=== PATIENT | male | born 1945 | race Caucasian/White ===

== ENCOUNTER 2020-01-29 18:01 | Emergency (ER) | payer MEDICARE, BC ==
--- NOTE | 2020-01-29 18:28 | EDM.PDOC ---
ED HPI GENERAL MEDICAL PROBLEM - General Chief Complaint: Abdominal Pain Stated Complaint: LEFT SIDE PAIN Time Seen by Provider: 01/29/20 18:10 Source of Information: Reports: Patient History Limitations: Reports: No Limitations - History of Present Illness INITIAL COMMENTS - FREE TEXT/NARRATIVE: Patient comes in with complaints of left lower abdominal discomfort. Patient states it started approximately 24 hours prior to arrival to emergency department. Patient states it is a sudden onset sharp shooting on the left side. He states that he does have a history of diverticulitis approximately 3 times in his entire life and he states that it does feel similar to that however present on the same characteristic spot of generalized abdominal pain. He denies any urinary concerns of frequency, hesitancy or burning. He does state that it does hurt to palpate on the left lower abdominal cavity. And also the left lower flank area is tender to touch. Denies any new sexual partners or changes in sexual behavior in the last 60 days. Patient also states that he has not had any COVID-19 symptoms denies any fever, shortness of breath, chest pain, or peripheral edema. Location: Reports: Abdomen Quality: Reports: Ache Improves with: Reports: None Worsens with: Reports: None Associated Symptoms: Reports: No Other Symptoms Left Middle Abdominal Pain Score (Numeric/FACES): 5 - Related Data Allergies Allergy/AdvReac Type Severity Reaction Status Date / Time meperidine [From Demerol] AdvReac Severe Vomiting Verified 01/29/20 19:23 midazolam [From Versed] AdvReac Severe Pain Verified 01/29/20 19:23 Home Meds: Home Meds Amoxicillin/Potassium Clav [Augmentin 500-125 Tablet] 2 each PO BID #19 tablet 01/29/20 [Rx] ED ROS GENERAL - Review of Systems Review Of Systems: See Below Constitutional: Reports: No Symptoms HEENT: Reports: No Symptoms Respiratory: Reports: No Symptoms Cardiovascular: Reports: No Symptoms Endocrine: Reports: No Symptoms : Reports: No Symptoms Musculoskeletal: Reports: No Symptoms Skin: Reports: No Symptoms Neurological: Reports: No Symptoms Psychiatric: Reports: No Symptoms Hematologic/Lymphatic: Reports: No Symptoms Immunologic: Reports: No Symptoms ED EXAM, GENERAL - Physical Exam Exam: See Below Exam Limited By: No Limitations General Appearance: Alert, WD/WN, No Apparent Distress Head: Atraumatic, Normocephalic Respiratory/Chest: No Respiratory Distress, Lungs Clear, Normal Breath Sounds, No Accessory Muscle Use, Chest Non-Tender Cardiovascular: Normal Peripheral Pulses, Regular Rate, Rhythm, No Edema, No Rub GI/Abdominal: Tender, Abnormal Bowel Sounds. No: Distended, Guarding, Rigid, Rebound Back Exam: Normal Inspection, Full Range of Motion Extremities: Normal Inspection, Normal Range of Motion, Non-Tender, No Pedal Edema, Normal Capillary Refill Neurological: Alert, Oriented, Normal Gait Psychiatric: Normal Affect, Normal Mood Skin Exam: Warm, Intact, Normal Color Course - Vital Signs Last Recorded V/S: Last Vital Signs Temp 37.4 C 01/29/20 18:05 Pulse 87 01/29/20 18:05 Resp 16 01/29/20 18:05 BP 144/80 H 01/29/20 18:05 Pulse Ox 96 01/29/20 18:05 - Orders/Labs/Meds Orders: Active Orders 24 hr Category Date Time Status Amoxicillin/Clavulanate K [Augmentin 500 MG\125 MG] Med 01/29/20 19:46 Once 2 tab PO ONETIME ONE Sodium Chloride 0.9% [Normal Saline] 1,000 ml Med 01/29/20 19:04 Active IV ONETIME Medication Orders Amoxicillin/Clavulanate Potassium (Augmentin 500 Mg\125 Mg) 2 tab PO ONETIME ONE Stop: 01/29/20 19:47 Sodium Chloride (Normal Saline) 1,000 mls @ 1,000 mls/hr IV ONETIME ONE Stop: 01/29/20 20:03 Labs: Laboratory Tests 01/29/20 01/29/20 01/29/20 Range/Units 18:22 18:22 19:04 WBC 11.1 H (4.0-10.0) x10^3/uL RBC 4.71 (4.5-6.0) x10^6/uL Hgb 14.6 (14.0-18.0) g/dL Hct 41.8 (40.0-52.0) % MCV 88.7 (78.0-93.0) fL MCH 31.0 (26.0-32.0) pg MCHC 34.9 (32.0-36.0) g/dL RDW Coeff of Jackelyn 13.5 (10.0-15.0) % Plt Count 196 (130-400) x10^3/uL Neut % (Auto) 73.3 (50.0-80.0) % Lymph % (Auto) 16.8 L (25.0-50.0) % [place] % (Auto) 7.7 (2.0-11.0) % Eos % (Auto) 1.8 (0.0-4.0) % Baso % (Auto) 0.4 (0.2-1.2) % Sodium 141 (136-145) mmol/L Potassium 4.0 (3.5-5.1) mmol/L Chloride 105 (98-107) mmol/L Carbon Dioxide 26 (21-32) mmol/L Anion Gap 14.0 (10-20) mmol/L BUN 23 H (7-18) mg/dL Creatinine 1.2 (0.70-1.30) mg/dL Est Cr Clr Drug Dosing TNP Estimated GFR (MDRD) 59 Glucose 84 (74-106) mg/dL Calcium 9.0 (8.5-10.1) mg/dL Corrected Calcium 9.08 (8.5-10.1) mg/dL Total Bilirubin 0.7 (0.2-1.0) mg/dL AST 19 (15-37) U/L ALT 28 (16-63) U/L Alkaline Phosphatase 72 (46-116) U/L Total Protein 7.5 (6.4-8.2) g/dL Albumin 3.9 (3.4-5.0) g/dL Globulin 3.6 Albumin/Globulin Ratio 1.08 Urine Color Yellow (YELLOW) Urine Appearance Clear (CLEAR) Urine pH 5.0 (5.0-8.0) Ur Specific [place] 1.020 Urine Protein Negative (NEGATIVE) mg/dL Urine Glucose (UA) Negative (NEGATIVE) mg/dL Urine Ketones Negative (NEGATIVE) mg/dL Urine Occult Blood Negative (NEGATIVE) Urine Nitrite Negative (NEGATIVE) Urine Bilirubin Negative (NEGATIVE) Urine Urobilinogen 0.2 (0.2) EU/dL Ur Leukocyte Esterase Negative (NEGATIVE) Meds: Medications Generic Name Dose Route Start Last Admin Trade Name Freq PRN Reason Stop Dose Admin Amoxicillin/Clavulanate Potassium 2 tab 01/29/20 19:46 Augmentin 500 Mg\125 Mg PO 01/29/20 19:47 ONETIME ONE Sodium Chloride 1,000 mls @ 1,000 mls/hr 01/29/20 19:04 Normal Saline IV 01/29/20 20:03 ONETIME ONE Discontinued Medications Generic Name Dose Route Start Last Admin Trade Name Morales PRN Reason Stop Dose Admin Iopamidol 100 ml 01/29/20 18:54 01/29/20 19:01 Isovue-300 (61%) IVPUSH 01/29/20 18:55 100 ml ONETIME ONE Administration Iopamidol 50 ml 01/29/20 18:54 01/29/20 19:01 Isovue-300 (61%) IVPUSH 01/29/20 18:55 50 ml ONETIME ONE Administration Departure - Departure Time of Disposition: 19:50 Disposition: Home, Self-Care 01 Condition: Good Clinical Impression: Diverticulitis - Discharge Information *PRESCRIPTION DRUG MONITORING PROGRAM REVIEWED*: Not Applicable *COPY OF PRESCRIPTION DRUG MONITORING REPORT IN PATIENT PATRICIA: Not Applicable Instructions: Diverticulitis, Probiotics, Amoxicillin; Clavulanic Acid tablets Forms: ED Department Discharge Additional Instructions: 1. rest 2. increase your water intake 3. Take all antibiotics as prescribed even if feeling better 4. Take a probiotic while on antibiotics to help promote healthy GI motility 5. Activity and diet as tolerated 6. Can use Ibuprofen and tylenol for any fever or discomfort 7. Follow up with your PCP or return if symptoms progress or worsen 8. Education provided to you regarding your illness, probiotics, antibiotic prescribed 9. Call with any questions or concerns Sepsis Event Note (ED) - Focused Exam Vital Signs: Vital Signs Temp Pulse Resp BP Pulse Ox 01/29/20 18:05 37.4 C 87 16 144/80 H 96 - My Orders Last 24 Hours: My Active Orders 01/29/20 19:04 Sodium Chloride 0.9% [Normal Saline] 1,000 ml IV ONETIME 01/29/20 19:46 Amoxicillin/Clavulanate K [Augmentin 500 MG\125 MG] 2 tab PO ONETIME ONE - Assessment/Plan Last 24 Hours: My Active Orders 01/29/20 19:04 Sodium Chloride 0.9% [Normal Saline] 1,000 ml IV ONETIME 01/29/20 19:46 Amoxicillin/Clavulanate K [Augmentin 500 MG\125 MG] 2 tab PO ONETIME ONE Assessment:: 1. abdominal pain Plan: 1. Labs completed in the ER. Results reviewed with the patient 2. CT scan completed in the ER. Results reviewed with the patient 3. IV initiated in the emergency department 4. IV fluids provided 5. UA/UC completed in ER 6. Augmentin given in the ER. Has been given this in the past for diverticulitis and it has worked well. Script sent with patient to be filled 7. Patient and nursing staff was updated regarding the plan of care 8. Patient and family are agreeable to the above plan of care 9. All questions and concerns were addressed with the patient and family prior to discharge
[2020-01-29 18:48] LABS: CHLORIDE,CL 105 mmol/L (98-107); SODIUM,NA 141 mmol/L (136-145)
[2020-01-29] MEDS ORDERED: Iopamidol 612 MG/ML 50 ML SDV IVPUSH ONE (18:54)
[2020-01-29] MEDS ORDERED: Iopamidol 612 MG/ML 100 ML Bottle IVPUSH ONE (18:54)
[2020-01-29] MEDS ORDERED: Sodium Chloride 0.9% 1,000 ML IV ONE (19:04)
--- NOTE | 2020-01-29 19:42 | CT ---
[id number] CT/CT Abdomen Pelvis WWO IV Exam: CT Abdomen Pelvis WWO IV Clinical Data: LEFT LOWER QUADRANT PAIN COMPARISON: NO PREVIOUS SIMILAR EXAM IS AVAILABLE FINDINGS: There is diverticulosis and mild diverticulitis involving the descending colon There is no obstruction of either kidney The liver and spleen, kidneys, adrenals, pancreas, and aorta are unremarkable The pelvis shows no mass or adenopathy There is slight irregularity of the posterior wall of the urinary bladder. The appendix appears normal. The appendix is seen on images 73 and 74, series 3 IMPRESSION: EARLY DIVERTICULITIS OF DESCENDING COLON Jason Hannah MD 01/29/20 0450 Thank you for allowing us to participate in the care of your patient.
[2020-01-29] MEDS ORDERED: Amoxicillin/Clavulanate K 500-125 MG Tab PO ONE (19:46)
== END 2020-01-29 20:04 | disposition home or self-care (01) ==
LOC: VM.ED 18:01
DX: K57.32 Diverticulitis of large intestine without perforation or abscess without bleeding (principal); Z88.8 Allergy status to other drugs, medicaments and biological substances
CPT/HCPCS: 36415; 74178; 80053; 81003; 85025; 99284; A9270; Q9967